=== PATIENT | female | born 1980 | race Caucasian/White ===

== ENCOUNTER 2017-07-10 17:12 | Emergency (ER) | payer OTHER, SELFPAY ==
[~2017-07-10] VITALS: Ht 167.6 cm; Wt 74.1 kg
[2017-07-10] MEDS ORDERED: SODIUM CHLORIDE FLUSH 10ML SYR IVF ONE (17:30)
[2017-07-10] MEDS ORDERED: SODIUM CHLORIDE 0.9% 1,000ML IVBOLUS ONE (17:30)
[2017-07-10] MEDS ORDERED: ONDANSETRON 2MG/ML, 2ML IVPush ONE (17:30)
[2017-07-10 17:50] LABS: HEMATOCRIT 46.3 % (34.6-47.8); WHITE BLOOD COUNT 13.3 x10^3/uL (3.4-10)
[2017-07-10 17:59] LABS: ASPARTATE AMINO TRANSFERASE 19 U/L (15-37); BLOOD UREA NITROGEN 14 mg/dL (7-18)
[2017-07-10] MEDS ORDERED: IBUP-1221 PO (19:20)
[2017-07-10] MEDS ORDERED: ONDANSETRON 2MG/ML, 2ML ONE (19:25)
[2017-07-10] MEDS ORDERED: DICYCLOMINE 20 MG TABLET PO ONE (20:00)
[2017-07-10] MEDS ORDERED: ACETAMINOPHEN 500 MG TABLET PO ONE (20:00)
[2017-07-10] MEDS ORDERED: FAMOTIDINE 20 MG TABLET PO ONE (20:00)
[2017-07-10] MEDS ORDERED: IBUPROFEN 200 MG TABLET PO ONE (20:00)
[2017-07-10] MEDS ORDERED: IBUPROFEN 200 MG TABLET ONE (20:07)
[2017-07-10] MEDS ORDERED: ACETAMINOPHEN 500 MG TABLET ONE (20:07)
[2017-07-10] MEDS ORDERED: FAMOTIDINE 20 MG TABLET ONE (20:07)
[2017-07-10 21:54] VITALS: BP 103/64
== END 2017-07-10 21:55 | disposition home or self-care (01) ==
LOC: ED 19:52
DX: R10.84 Generalized abdominal pain (principal)
CPT/HCPCS: 36415; 74020; 76700; 80053; 81003; 83690; 84703; 85025; 85610; 99285